=== PATIENT | female | born 1975 ===

== ENCOUNTER 2022-03-11 20:04 | Emergency (ER) | payer OTHER, SELFPAY ==
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
[2022-03-11 20:14] VITALS: BP 169/82; PULSE 97; RESP 16; O2SAT 98; BMI 28.3
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
[2022-03-11] MEDS: Cyclobenzaprine HCl 5 MG TABLET PO (21:45)
[2022-03-11] MEDS: Ketorolac Tromethamine 15 MG/ML VIAL IM (21:46)
== END 2022-03-11 22:31 | disposition home or self-care (01) ==
PROVIDERS: Emergency Provider Emergency Medicine
DX: R07.89 Other chest pain (principal); M25.511 Pain in right shoulder; Z79.899 Other long term (current) drug therapy
CPT/HCPCS: 71046; 73060; 73080; 96372; 99283; 99284; J1885

== ENCOUNTER → 2022-04-29 09:25 | Outpatient (RCR) | payer OTHER, SELFPAY ==
[2020-05-22 08:30] LABS: COVID-19 Test Negative (Negative)
[2020-05-30 09:42] LABS: COVID-19 Test Negative (Negative)
[2020-06-05 15:41] LABS: COVID-19 Test Negative (Negative)
[2020-06-29 13:54] LABS: SARS-COV-2 PCR UMBRL NOT DETECTED
[2020-07-08 09:44] LABS: SARS-COV-2 PCR UMBRL Not Detected
[2020-07-15 10:04] LABS: SARS-COV-2 PCR UMBRL Not Detected
[2020-07-19 12:16] LABS: SARS-COV-2 PCR UMBRL NEGATIVE
[2020-07-24 08:53] LABS: COVID-19 Test Negative (Negative)
[2020-07-26 15:31] LABS: SARS-COV-2 PCR UMBRL NEGATIVE
== END | disposition home or self-care (01) ==
LOC: HO.EMPCOV 05-22 08:07
PROVIDERS: Visit Provider Internal Medicine
DX: Z20.828 Contact with and (suspected) exposure to other viral communicable diseases (principal)
CPT/HCPCS: 36415; 87635; C9803; U0003

== ENCOUNTER 2022-09-25 06:38 | Outpatient (REF) | payer OTHER, SELFPAY ==
[2022-09-25 07:56] LABS: MANUAL DIFF FLAG NO
[2022-09-25 08:18] LABS: Basophils Absolute Auto 0.1 X10*3/uL (0.0-0.2); Basophils Percent Auto 0.8 % (0-2); Eosinophils Absolute Auto 0.5 X10*3/uL (0.0-0.4); Eosinophils Percent Auto 7.1 % (0-4); Hemoglobin 12.9 g/dl (12.0-16.0); Imm Gran Abs Auto 0.05 X10*3/uL (0.00-0.03); Imm Gran Pct Auto 0.7 % (0.0-0.4); Lymphocytes Absolute Auto 2.3 X10*3/uL (1.2-4.9); Lymphocytes Percent Auto 31.9 % (20-40); Mean Corpuscular HGB Conc 32.3 g/dl (31.0-35.0); Mean Corpuscular Hemoglobin 27.2 pg (27.0-33.0); Mean Corpuscular Volume 84.4 fL (80.0-98.0); Monocytes Absolute Auto 0.4 X10*3/uL (0.1-1.2); Monocytes Percent Auto 5.9 % (2-11); Neutrophils Absolute Auto 3.8 x10*3/uL (2.0-8.3); Neutrophils Percent Auto 53.6 % (45-73); Platelet Count 252 X10*3/uL (160-400); Red Blood Count 4.74 X10*6/uL (4.20-5.50); Red Cell Distribution Width 13.7 % (11.0-16.0); White Blood Count 7.1 X10*3/uL (4.8-10.8)
[2022-09-25 09:06] LABS: Alanine Aminotransferase 16 U/L (0-31); Alkaline Phosphatase 68 U/L (39-117); Anion Gap 15 (12-20); Aspartate Amino Transferase 12 U/L (5-31); Bilirubin Total 0.4 mg/dL (0.0-1.0); Blood Urea Nitrogen 15 mg/dL (9-16); Calcium 9.1 mg/dL (8.4-10.2); Carbon Dioxide 21 mmol/L (22-29); Chloride 109 mmol/L (96-108); Cholesterol 262 mg/dL; Estimated Glomerular Filt Rate > 60; Glucose Random 191 mg/dL (60-115); HDL Cholesterol 42 mg/dL; LDL Cholesterol Calculated 195 mg/dl; Potassium 4.5 mmol/L (3.3-5.1); Sodium 140 mmol/L (135-145); Total Protein 6.4 g/dL (6.5-8.0); Triglycerides 127 mg/dL
[2022-09-25 09:29] LABS: Free T4 (Free Thyroxine) 0.91 ng/dL (0.71-1.85); T4 Thyroxine 7.9 ug/dL (4.5-12.0); Thyroid Stimulating Hormone 1.44 uIU/mL (0.32-4.0); Vitamin D 25-OH Total 11.3 ng/mL (>30)
[2022-09-27 21:03] LABS: T3 Uptake 29 % (22-35)
[2022-09-27 23:54] LABS: TS Negative Control Passed; TS Panel A 0; TS Panel B 0; TS Positive Control Passed; TSpotTB Negative (Negative)
== END 2022-09-25 06:39 | disposition home or self-care (01) ==
LOC: HO.LAB 06:38
PROVIDERS: PCP Internal Medicine; Visit Provider Internal Medicine
DX: Z00.00 Encounter for general adult medical examination without abnormal findings (principal); E78.41 Elevated Lipoprotein(a)
CPT/HCPCS: 36415; 80053; 80061; 82306; 84436; 84439; 84443; 84479; 85025; 86481

== ENCOUNTER 2024-03-27 10:09 | Emergency (ER) | payer OTHER, SELFPAY ==
--- NOTE | ~2024-03-27 | US_ITS ---
EXAMINATION: ULTRASOUND OF THE PELVIS CLINICAL INFORMATION: Left lower pelvic pain. COMPARISON: None TECHNIQUE: Transabdominal and transvaginal pelvic ultrasound. A transvaginal study was performed in addition to the transabdominal study which did not yield an adequate examination of the uterus and ovaries due to superimposed distended gas-filled loops of bowel. FINDINGS: Uterus: The uterus is anteverted and normal in size and appearance, measuring 8.7 x 3.7 x 3.8 cm. An intrauterine device is in place, obscuring assessment of the endometrial stripe and the posterior uterine parenchyma.. There are 3 small uterine fibroid seen, including the following: -Anterior midline of the uterine body, small intramural fibroid, measuring 0.8 x 0.7 x 0.8 cm. -Posterior uterine body intramural fibroid, measuring 0.5 x 0.5 x 0.5 cm. -Right-sided uterine fundal intramural fibroid is subserosal extension, measuring 2.3 x 2.5 x 3 cm. The cervical length is normal measuring 3.6 cm. Small nabothian cysts are seen in the cervix. Ovaries: The ovaries bilaterally are visualized and appear normal, with the right ovary measuring 2.1 x 2 x 1.9 cm (4.2 mL volume) and the left ovary measuring 1 x 2.2 x 1.1 cm (1.3 mL volume). Please note, the left ovary is only seen on the transabdominal imaging and not visualized on the transvaginal exam due to multiple shadowing loops of gas-filled bowel. With color Doppler imaging, normal flow to the right ovary is seen. Flow to the left ovary is not documented. Spectral Doppler assessment of both ovaries was not performed. Other: No adnexal mass or free fluid collection seen. US/US pelvic and transvaginal IMPRESSION: 1. Multiple small uterine fibroids are seen. 2. Intrauterine device is in place, limiting assessment of the endometrial stripe and posterior uterine parenchyma. 3. Ovaries bilaterally normal in appearance. Normal vascular flow to the right ovary. Please note, however, the left ovary was only visualized on the transabdominal portion of the exam and was not specifically evaluated with color Doppler imaging. Therefore, vascular flow to the left ovary was not evaluated on this exam. Electronically signed by: Rosi Okeefe MD 03/27/2024 02:19 PM EDT RP
[2024-03-27 10:14] VITALS: BP 150/83; PULSE 71; RESP 20; TEMP 37; O2SAT 100; BMI 24.9
[2024-03-27 10:56] LABS: MANUAL DIFF FLAG NO
[2024-03-27 10:58] LABS: Basophils Absolute Auto 0.1 X10*3/uL (0.0-0.2); Basophils Percent Auto 0.8 % (0-2); Eosinophils Absolute Auto 0.4 X10*3/uL (0.0-0.4); Eosinophils Percent Auto 5.3 % (0-4); Hematocrit 40.5 % (37.0-47.0); Hemoglobin 13.8 g/dl (12.0-16.0); Imm Gran Abs Auto 0.02 X10*3/uL (0.00-0.03); Imm Gran Pct Auto 0.3 % (0.0-0.4); Lymphocytes Absolute Auto 2.6 X10*3/uL (1.2-4.9); Lymphocytes Percent Auto 34.7 % (20-40); Mean Corpuscular HGB Conc 34.1 g/dl (31.0-35.0); Mean Corpuscular Hemoglobin 28.6 pg (27.0-33.0); Mean Platelet Volume 9.5 fL (9.4-12.3); Monocytes Absolute Auto 0.5 X10*3/uL (0.1-1.2); Monocytes Percent Auto 6.5 % (2-11); Neutrophils Percent Auto 52.4 % (45-73); Platelet Count 242 X10*3/uL (160-400); Red Blood Count 4.82 X10*6/uL (4.20-5.50); Red Cell Distribution Width 14.2 % (11.0-16.0); White Blood Count 7.6 X10*3/uL (4.8-10.8)
[2024-03-27 11:00] LABS: Appearance Urine Clear; Color Urine Yellow; Glucose Urine UA Negative (Negative); Leukocyte Esterase Urine Negative (Negative); Nitrite Urine Negative (Negative); PH 5.5 (5.0-9.0); UMIC TRIGGER UACC YES; Urine Blood Small (1+) (Negative); Urine Ketones Negative (Negative); Urine Protein Negative (Neg-Trace)
[2024-03-27 11:07] LABS: Bacteria Urine None Seen (None Seen); Hyaline Casts Urine 0-2 /LPF (0-2); RBC Urine 0-2 /HPF (0-2); Squamous Epithelial Cell Urine 0-2 /HPF (0-2); WBC Urine 0-5 /HPF (0-5)
[2024-03-27 11:12] LABS: Alanine Aminotransferase 14 U/L (0-31); Albumin Level 4.1 g/dL (3.5-5.0); Alkaline Phosphatase 56 U/L (39-117); Anion Gap 10 (12-20); Aspartate Amino Transferase 13 U/L (5-31); Bilirubin Total 0.6 mg/dL (0.0-1.0); Blood Urea Nitrogen 13 mg/dL (9-16); Calcium 9.9 mg/dL (8.4-10.2); Carbon Dioxide 26 mmol/L (22-29); Chloride 108 mmol/L (96-108); Creatinine Clr Calc Pharmacy 80.1; Estimated Glomerular Filt Rate > 60; Glucose Random 133 mg/dL (60-115); Lipase 21 U/L (8-78); Sodium 140 mmol/L (135-145); Total Protein 6.7 g/dL (6.5-8.0)
--- NOTE | 2024-03-27 11:49 | ED.ABDPAIN ---
HPI - Abdominal Pain General Chief Complaint: Abdominal Pain Stated Complaint: Abdominal Pain Time Seen by Provider: 03/27/24 11:23 Source: patient and RN notes reviewed Mode of arrival: ambulatory Limitations: no limitations History of Present Illness ED Provider: Shalini Soares PA-C HPI narrative: This is a [id number] who presents to the ER with complaints of left lower abdominal pain since 1:30AM this morning. Patient states that while she was sleeping she was awoken with left lower quadrant pain. She states that the pain is intermittent, she states that she took Excedrin at 4:45 a.m. this morning, which alleviated her symptoms. She states that the pain alleviates with movement, worsens at rest. She has a history of ovarian cysts. She reports her last menstrual period started on March 21, states that last month she missed her menses, she states that she has a history of irregular menses and believes that she is approaching menopause. She is sexually active with her partner. No abnormal vaginal discharge or bleeding. Denies any fevers, chills, chest pain, shortness breath, nausea, vomiting, diarrhea, blood in stool, UTI symptoms or sexual partners. MD elicited complaint: abdominal pain Pertinent past history: none Onset (ago): hour(s) Pain Consistency: intermittent Location: LLQ Quality: other (squeezing) Radiation: none Migration to: no migration Exacerbating factors: rest Relieving factors: movement Associated symptoms: denies other symptoms Treatments prior to arrival: NSAIDs Related Data Date of Last Menstrual Period: 03/21/24 Previous Rx's ?Medication ?Instructions ?Recorded cyclobenzaprine 5 mg tablet 5 mg PO TID PRN muscle spasm 7 03/11/22 days #21 tabs Allergies Allergy/AdvReac Type Severity Reaction Status Date / Time acetaminophen [From Percocet] Allergy Itching Verified 03/27/24 10:16 oxycodone [From Percocet] Allergy Itching Verified 03/27/24 10:16 Review of Systems Review of Systems Yes all other systems are reviewed and are negative Constitutional: Denies chills and Denies fever(s) Cardiovascular: Denies chest pain and Denies dyspnea Respiratory: Denies dyspnea Gastrointestinal: Reports abdominal pain, Denies melena, Denies hematochezia, Denies constipation, Reports dyspepsia, Denies diarrhea, Denies nausea and Denies vomiting Genitourinary: Reports abnormal menses, Denies hematuria, Denies difficulty voiding, Denies dysuria, Reports pelvic pain, Denies flank pain, Denies urinary urgency, Denies vaginal discharge, Denies vaginal odor and Denies vaginal pruritus PMF Past Medical History Date of Last Menstrual Period: 03/21/24 Social History Social History Advance Directives: No Advance Directives Information Provided: No Do you have a plan to hurt others: No Plan Physical Exam ED Vital Signs: Vital Signs - 24 hr 03/27/24 10:14 03/27/24 12:00 03/27/24 14:00 Temperature 98.6 F 98 F 97.3 F Pulse Rate 71 54 56 Respiratory Rate 20 18 18 Blood Pressure 150/83 H 110/76 118/74 Pulse Oximetry 100 98 98 Oxygen Delivery Method Room Air Room Air Room Air 03/27/24 15:26 Temperature 97.3 F Pulse Rate 56 Respiratory Rate 18 Blood Pressure 118/74 Pulse Oximetry 98 Oxygen Delivery Method Room Air BMI result Body Mass Index 24.9 Const General: cooperative, comfortable and no acute distress Limitations: no limitations Chest Chest palpation & inspection: normal inspection of the chest Resp Effort & Inspection: normal respiratory effort and able to speak in complete sentences Auscultation: clear to auscultation bilaterally, no crackles, no rales, no rhonchi and no wheezes Cardio Rate: regular rate Rhythm: regular rhythm Heart sounds: S1 normal heart sound present and S2 normal heart sound present GI Other: tender to palpation with guarding in LLQ Inspection: Yes normal to inspection Palpation (GI): Soft to palpation and Guarding due to palpation present (GI) in the LLQ Auscultation: normal bowel sounds Course Reevaluation(s) Reevaluation #1: Ultrasound revealing small uterine fibroids, IUD placement, as normal ovarian appearance. Vascular flow to the left ovary was not evaluated however appears to be normal. Patient re-evaluated, she has not had any pain in her left lower abdomen for several hours. She is feeling much better, I discussed findings with patient, and she will follow-up with her PCP and OBGYN. Ovarian torsion is unlikely given her pain has since resolved. I gave her strict return precautions. She understands and agrees with plan. Patient stable for discharge. Time: 14:43 Medical Decision Making Medical Decision Making [facility] Narrative: this is a 48-year-old female who presents emergency department with complaints of left lower quadrant pain which started at 1:30 a.m. this morning. On arrival, she is well-appearing, under no acute distress. Vital signs revealing slight hypertension at 150/83, abdomen is soft, with mild tenderness palpation in the left lower quadrant, no rebound or guarding. Differential diagnoses include UTI, diverticulitis - unlikely, constipation, ovarian cyst, ovarian torsion. Plan: Labs, ultrasound, UA Differential Diagnosis Differential Diagnoses: The differential diagnosis associated with the presentation includes Admission/Observation Consideration of admission/observation: Escalation of care including admission/observation considered Lab Data [facility] Lab Attestation statement: I reviewed the patient's lab results. No leukocytosis, stable H&H, no electrolyte derangement. Urine with small blood, negative . 03/27/24 10:50 03/27/24 10:50 Labs: Lab Results 03/27/24 03/27/24 Range/Units 10:48 10:50 WBC 7.6 (4.8-10.8) X10*3/uL RBC 4.82 (4.20-5.50) X10*6/uL Hgb 13.8 (12.0-16.0) g/dl Hct 40.5 (37.0-47.0) % MCV 84.0 (80.0-98.0) fL MCH 28.6 (27.0-33.0) pg MCHC 34.1 (31.0-35.0) g/dl RDW 14.2 (11.0-16.0) % Plt Count 242 (160-400) X10*3/uL MPV 9.5 (9.4-12.3) fL Immature Gran % (Auto) 0.3 (0.0-0.4) % Neut % (Auto) 52.4 (45-73) % Lymph % (Auto) 34.7 (20-40) % Mccreary % (Auto) 6.5 (2-11) % Eos % (Auto) 5.3 H (0-4) % Baso % (Auto) 0.8 (0-2) % Lymph # (Auto) 2.6 (1.2-4.9) X10*3/uL M[place]reary # (Auto) 0.5 (0.1-1.2) X10*3/uL Eos # (Auto) 0.4 (0.0-0.4) X10*3/uL Baso # (Auto) 0.1 (0.0-0.2) X10*3/uL Abs Immat Gran (auto) 0.02 (0.00-0.03) X10*3/uL Absolute Neuts (auto) 4.0 (2.0-8.3) x10*3/uL Absolute Nucleated RBC 0.000 (0.0-0.012) X10*3/uL Nucleated RBC % (auto) 0.0 (0.0-0.2) /100WBC Sodium 140 (135-145) mmol/L Potassium 4.0 (3.3-5.1) mmol/L Chloride 108 (96-108) mmol/L Carbon Dioxide 26 (22-29) mmol/L Anion Gap 10 L (12-20) BUN 13 (9-16) mg/dL Creatinine 0.78 (0.5-1.4) mg/dL Estim Creat Clear Calc 80.1 Estimated GFR > 60 Random Glucose 133 H (60-115) mg/dL Calcium 9.9 D (8.4-10.2) mg/dL Total Bilirubin 0.6 (0.0-1.0) mg/dL AST 13 (5-31) U/L ALT 14 (0-31) U/L Alkaline Phosphatase 56 (39-117) U/L Total Protein 6.7 (6.5-8.0) g/dL Albumin 4.1 (3.5-5.0) g/dL Lipase 21 (8-78) U/L Urine Color Yellow Urine Appearance Clear Urine pH 5.5 (5.0-9.0) Ur Specific [place] 1.010 (1.005-1.025) Urine Protein Negative (Neg-Trace) mg/dL Urine Glucose (UA) Negative (Negative) mg/dL Urine Ketones Negative (Negative) mg/dL Urine Blood Small (1+) H (Negative) Urine Nitrite Negative (Negative) Ur Leukocyte Esterase Negative (Negative) Urine RBC 0-2 (0-2) /HPF Urine WBC 0-5 (0-5) /HPF Ur Squamous Epith Cells 0-2 (0-2) /HPF Urine Bacteria None Seen (None Seen) Hyaline Casts 0-2 (0-2) /LPF Urine Test NEGATIVE (NEGATIVE) Radiology Impression Discussion of test interpretation with radiology: I have reviewed the radiologist's reading. Radiologist Impression: US/US pelvic and transvaginal IMPRESSION: 1. Multiple small uterine fibroids are seen. 2. Intrauterine device is in place, limiting assessment of the endometrial stripe and posterior uterine parenchyma. 3. Ovaries bilaterally normal in appearance. Normal vascular flow to the right ovary. Please note, however, the left ovary was only visualized on the transabdominal portion of the exam and was not specifically evaluated with color Doppler imaging. Therefore, vascular flow to the left ovary was not evaluated on this exam. Electronically signed by: Rosi Okeefe MD 03/27/2024 02:19 PM EDT RP Dictated By: Rosi Okeefe MD External Record Review External record reviewed: Inpatient record, Office record, Outpatient record, Prior outpatient labs, Prior outpatient radiology, Primary care record and Outside ED record Discharge Plan Discharge Clinical Impression: Abdominal pain Patient Disposition: Home, Self-Care Instructions: Acute Abdominal Pain (ED) Additional Instructions: You were seen in the emergency department due to abdominal pain. It is unclear what is causing you to have the symptoms however your workup today was reassuring. Please get plenty of rest and drink plenty of fluids, and take ibuprofen and or Tylenol as needed for pain. If any new or worsening symptoms occur including but not limited to return of your symptoms please return for re-evaluation. Follow-up with your primary care physician and your OBGYN. Prescriptions: No Action cyclobenzaprine 5 mg tablet 5 mg PO TID PRN (Reason: muscle spasm) 7 Days Qty: 21 0RF Stand Alone Forms: Work/School Release Interventions: ED Discharge Assessment Last Done: 03/27/24 15:26 Discharge Date/Time: 03/27/24 15:26 Print Language: Colombian
[2024-03-27 12:00] VITALS: BP 110/76; PULSE 54; RESP 18; TEMP 36.6; O2SAT 98
[2024-03-27 12:21] LABS: UPreg QC Valid YES; Urine Pregnancy NEGATIVE (NEGATIVE)
[2024-03-27 14:00] VITALS: BP 118/74; PULSE 56; RESP 18; TEMP 36.3; O2SAT 98
[2024-03-27 15:26] VITALS: BP 118/74; PULSE 56; RESP 18; TEMP 36.3; O2SAT 98
== END 2024-03-27 15:26 | disposition home or self-care (01) ==
PROVIDERS: Physician Assistant Medical; Emergency Provider Emergency Medicine; PCP Internal Medicine
DX: R10.32 Left lower quadrant pain (principal); D25.9 Leiomyoma of uterus, unspecified; Z79.899 Other long term (current) drug therapy; R10.2 Pelvic and perineal pain
CPT/HCPCS: 36415; 76830; 76856; 80053; 81001; 81025; 83690; 85025; 99284

== ENCOUNTER 2025-06-25 15:17 | Outpatient (AMB) | payer OTHER, SELFPAY ==
--- NOTE | 2025-06-25 15:21 | A.OFFVIS_ITS ---
Intake Visit Reasons: birthmark with a skin tag Intake Note: Office procedure: Excision birthmark with a skin tag [employer] Required: No Accompanied by: Self / Same As Patient Allergies acetaminophen (From Percocet) Allergy (Verified 06/25/25 15:21) Itching oxycodone (From Percocet) Allergy (Verified 06/25/25 15:21) Itching Medication List - Last Reconciled 06/25/25 by Wesley Jones MD cyclobenzaprine 5 mg PO TID PRN 7 days HPI HPI birthmark with a skin tag: Details: [age] year old female here for a skin lesion in the right cheek. She says that she has had this since . This however has seemed to have increased in size and has been bothering her. She wants this excised. [facility] Medical History (Updated 06/25/25 @ 15:50 by Wesley Jones MD) Skin lesion of face Surgical History No pertinent past surgical history Family History Other Family history unknown Social History Alcohol intake: unknown Patient Tobacco Use Status: Tobacco use Unknown Review of Systems Const Denies chills and Denies fever(s) Card Denies chest pain, Denies dyspnea and Denies dyspnea on exertion Resp Denies cough, Denies dyspnea and Denies dyspnea on exertion GI Denies hematochezia and Denies change in bowel habits Denies hematuria Musc Denies back pain and Denies limited range of motion Neuro Denies focal weakness and Denies convulsions Psych Denies depression and Denies mood swings Physical Exam Const General: comfortable and no acute distress HEENT Other: On the right cheek is note of an elevated, pigmented soft skin lesion about 5 mm long, with a narrow base Office Procedures Excision Details: She was in reclining position. The area of the skin lesion in the right cheek was prepped and draped. Lidocaine 1% was used for local anesthesia. I excised this skin lesion with a blade 15.. This included part of the epidermal layer. In view of the narrow base, I did not apply sutures but cauterized the excision site with an i-STAT. I applied dry dressings. She tolerated procedure well. There were no immediate complications. [id number] face/ear/eyelid/nose/lip/mucous membrane 0.6cm-1cm Procedure code (CPT) selection complete Assessment & Plan Assessment & Plan (1) Skin lesion of face: Code(s): L98.9 - Disorder of the skin and subcutaneous tissue, unspecified Category: Medical Plan: This appears to be a papilloma. I therefore excised this in the office under local anesthesia. She was given wound care instructions. She can take Tylenol and ibuprofen for pain I will update her in the path report. Coding Level of Care Code New Pt Level 3 (87991) Diagnoses Skin lesion of face L98.9 CPT Codes Face/Ear/Eyelid/Nose/Lip/Mucous Membrane - CPT: 10726-Vqvimuen face/ear/eyelid/nose/lip/mucous membrane 0.6cm-1cm ([id number])
--- OUTSIDE RECORDS SUMMARY | 2025-06-25 21:47 | XMS_ITS | Clinical Summary ---
Author Organization [facility] [address] [place] [address] [place] [phone] Phone Care Team Providers Care [employer] Installer Name Role Phone Christiano Saeed MD Primary Care Provider Allergies Active Allergy Reactions Criticality Noted Date Comments Oxycodone-Acetaminophen Hives Low 05/10/2025 Medications ascorbic acid/vitamin E/biotin (HAIR, SKIN, NAILS WITH BIOTIN ORAL) BIOTIN W/ VITAMINS C & E 1250-7.5-7.5 MCG-MG-UNT CHEW TAB: Take by mouth daily. - Oral Active blood-glucose meter kit BLOOD GLUCOSE MONITORING SUPPL (ONE TOUCH ULTRA 2) W/DEVICE KIT: 1 Device by Does not apply route See Admin Instructions. Used to check sugars once daily. - Does not apply 12/03/19 24 Active multivit-min/ir on/folic acid/K (ADULTS MULTIVITAMIN ORAL) Take by mouth daily. Active levonorgestreL (Mirena) 21 mcg/24 hr (8 yrs) 52 mg IUD by Intrauterine route. Active lancets (OneTouch Delica Plus Lancet) 30 gauge Use as directed to check fsbs once daily 100 each 1 07/17/19 25 Active glucose blood test strip Use as instructed 100 each 11 09/05/19 25 Active Microlet Lancet lancets USE TO TEST BLOOD SUGARS 100 each 1 04/10/20 25 Active rosuvastatin (CRESTOR) 5 mg tablet Take 1 tablet (5 mg total) by mouth 1 (one) time each day. 90 each 3 05/10/20 25 Active metFORMIN XR (GLUCOPHAGE-XR) 500 mg 24 hr tablet TAKE 1 TABLET BY MOUTH 2 (TWO) TIMES A DAY WITH MEALS *DO NOT CRUSH CHEW OR SPLIT* 180 each 3 06/20/20 25 Active metFORMIN XR (GLUCOPHAGE-XR) 500 mg 24 hr tablet Take 1 tablet (500 mg total) by mouth 2 (two) times a day with meals. Do not crush, chew, or split. 180 each 3 09/05/19 25 2024 Discontinued Active Problems Problem Noted Date Diagnosed Date GERD (gastroesophageal reflux disease) Type 2 diabetes mellitus wit hout complication, without long-term current use of insulin 11/26/2023 Assessment & Plan (09/05/2024 5:10 PM EST): Patient had significant improvement in her diabetes control. She is only taking metformin 500 mg twice daily. She is very meticulous with her diet and exercise routine. She continues to lose weight. We talked about the recommendation for a statin for patients over 40 with diabetes. We also talked about her elevated cholesterol levels. Patient would like to hold off on additional medication at this time. Will reassess her lipid panel. Follow-up with care team as scheduled in 3 months. Sooner if need be. Orders: Lipid panel with reflex to direct LDL; Future Hemoglobin A1c; Future Comprehensive metabolic panel; Future Assessment & Plan (06/07/2024 4:04 PM EST): Her diabetes seems to be showing some significant improvement based on her fasting blood sugars. She is noticing that she needs to be very careful with her intake of even small amounts of carbohydrates, as it tends to cause sugar elevations for the next 2 to 3 days. She is down another 7 pounds through intentional efforts. She feels well has no complaints or concerns. She will continue on her current dose of metformin. I will recheck her hemoglobin A1c. I will let the patient know how this looks. Backache 09/13/2006 Overview (04/25/2024): IMO update Cervicalgia 09/13/2006 Pain in joint, shoulder region 09/13/2006 Encounters Date Type Department Care Team Description 05/10/2025 3:30 PM EDT Office Visit [address] [phone] Christiano Saeed MD Type 2 diabetes mellitus without complication, without long-term current use of insulin (CMS/HCC V24, CMS/HCC V28) (Primary Dx); Hypercholesterolemia 03/30/2025 3:38 PM EDT - 03/30/2025 11:59 PM EDT Hospital Encounter Radiology Department [address] [phone] Encounter for screening mammogram for breast cancer Discharge Disposition: Home or Self Care from Last 3 Months Immunizations Immunization Administration Dates Next Due COVID-19 (Moderna/Spikevax) 12yo and older 06/03 Hepatitis B Pediatric (Enger ix B; Recombivax HB) to less than 20 yo 11/15/2018,04/11/2018 Influenza trivalent, 0.5mL, preservative free (Fluarix; FluLaval; Fluzone) ages 6mo and older (Afluria) 3 years and older 05/22/2010 MMR, measles mumps and rubel la Live (Priorix; M-M-R II) 12mo and older 06/14/2019,04/11/2018,09/25/2015 PPD Test 09/16/2015 Tdap Tetanus diptheria acell ular pertussis (Boostrix; Adacel) 7yo and older 09/16/2015 Surgical History Surgery Date Site/Laterality Comments ANKLE SURGERY Right PROCEDURE: HISTORICAL ANKLE SURGERY; COMMENT: 1996 Medical History Medical History Date Comments GERD (gastroesophageal reflux disease) DX:GERD (gastroesophageal reflux disease) Family History Medical History Relation Name Comments Hypertension Father Parkinsonism Father Stomach cancer Maternal Grandfather Lung cancer Maternal Grandmother Diabetes Mother Hypertension Mother Uterine cancer Mother's side 1 aunt lewy body dementia Mother's side 1 Prostate cancer Mother's side 2 uncle Breast cancer Neg Hx Colon cancer Neg Hx Ovarian cancer Neg Hx Relation Name Status Comments Brother Alive 2 Daughter Alive Father Alive Maternal Grandfather Maternal Grandmother Mother Alive Mother's side 1 Mother's side 2 Paternal Grandfather Paternal Grandmother Son Alive Social History Tobacco Use Types Packs/Day Years Used Date Smoking Tobacco: Former Cigarettes Smokeless Tobacco: Former Quit: 03/12/2013 Alcohol Use Standard Drinks/Week Comments Yes 0 (1 standard drink = 0.6 oz pur e alcohol) occ Housing Instability Answer Date Recorde d Are you worried that in the next 2 months you may not have stable housing? No 11/28/2024 Food Access & Nutrition Answer Date Rec orded Do you have access to a vari ety of food including fruits and vegetables? Yes 11/28/2024 Access to Healthcare Answer Date Record ed Within the last 3 months, ho w many times did you visit the emergency department for your medical care? 0 11/28/2024 Health Literacy Answer Date Recorded How often do you need to hav e someone help you when you read instructions, pamphlets, or other written material from your doctor or pharmacy? Never 11/28/2024 Caregiver: How often do you need to have someone help you when you read instructions, pamphlets, or other written material from your doctor or pharmacy? Not on file 11/28/2024 Financial Risk Answer Date Recorded How hard is it for you to pa y for the very basics like food, housing, medical care, and air conditioning / heating? Not very hard 11/28/2024 Transportation Answer Date Recorded Has the lack of transportati on kept you from meetings, work, or from getting things needed for daily living? No Has the lack of transportati on kept you from medical appointments or from getting medications? No 11/28/2024 Social Isolation Answer Date Recorded How often do you feel lonely or isolated from th ose around you? Never 11/28/2024 Food Risk Answer Date Recorded Within the past 12 months we worried whether our food would run out before we got money to buy more. Never true 11/28/2024 Within the past 12 months th e food we bought just didn't last and we didn't have money to get more. Never true 11/28/2024 Dependent Care Answer Date Recorded Do you need help finding or paying for care for your loved ones. For example, childcare worker or elderly care for an older adult? No 11/28/2024 Education Answer Date Recorded Do you think completing more education or training, like finishing a GED, going to college, or learning a trade, would be helpful for you? N/A 11/28/2024 Employment and Income Answer Date Recor ded During the last four weeks, have you been actively looking for work? Yes 11/28/2024 Living Situation Answer Date Recorded What is your living situation? Unrecognized valu e 11/28/2024 Comments No Sex and Gender Information Value Date Recorded Sex Assigned at Not on file Legal Sex Female 5:42 AM EST Gender Identity Not on file Sexual Orientation Not on file Obstetrics History Para Term AB IAB SAB Ectopic Multiple Livin g Live Births 2 2 2 2 Date Outcome GA Total Labor Labor/2nd/3rd Weight Sex Type Anes PTL Yumi A1 A5 Name Clin Term Term Last Filed Vital Signs Vital Sign Reading Time Taken Comments Blood Pressure 112/71 05/10/2025 3:28 PM EDT Pulse 86 05/10/2025 3:28 PM EDT Temperature 36.9 C (98.5 F) 05/10/2025 3:28 PM EDT Respiratory Rate 15 05/10/2025 3:28 PM EDT Oxygen Saturation 98% 05/10/2025 3:28 PM EDT Inhaled Oxygen Concentration - - Weight 56.5 kg (124 lb 9.6 oz) 05/10/2025 3:28 P M EDT Height 154.9 cm (5' 1 ) 05/10/2025 3:28 PM EDT Body Mass Index 23.54 05/10/2025 3:28 PM EDT Plan of Treatment Upcoming Encounters Date Type Department Care Team (Late st Contact Info) Description 09/18/2025 3:30 PM EDT Office Visit Adult Medicine [facility] [address] [place] [address] Christiano Saeed MD [address] [place], [place] Health Maintenance Due Date Last Done Comments Influenza Vaccine (#1) 2025 05/22/2010 Diabetes: Annual Retina Eye Exam 04/17/2025 04/17/2024 Diabetes: Annual GFR (Glomerular Filtration Rate) 09/05/2025 09/05/2024, 06/07/2024, 11/25/2023, Additional history exists DTaP,Tdap,and Td Vaccines (2 - Td or Tdap) 09/15/2025 09/16/2015 Diabetes: Blood Sugar Control Test (HGBA1C) 09/20/2025 03/23/2025, 01/04/2025, 09/05/2024, Additional history exists Social Influencers of Health Screening 11/28/2025 11/28/2024 Diabetes: Annual Urine Albumin-Creatinine Ratio (uACR) 01/04/2026 01/04/2025, 03/07/2024 Diabetes: Annual Foot Exam 05/10/2026 05/10/2025, Breast Cancer Screening 03/30/2027 03/30/20, 03/28/2024, 03/28/2024, Additional history exists Cervical Cancer Screening: HPV 11/14/2028 11/15/2023 Cholesterol Screening (Lipid Panel) 09/05/2029 09/05/2024, 06/07/2024, 11/25/2023, Additional history exists Colorectal Cancer Screening: Colonoscopy 01/11/2034 01/12/2024 RSV Immunization Adult Patients (1 - 1-dose 75+ series) 11/11/2051 HIV Screening Completed 10/08/2006 Hepatitis B Vaccines Discontinued 11/15/2018, 04/11/20 18 MMR Vaccines Aged Out 06/14/2019, 1007/2017, 09/25/2015 No longer eligible based on patient's age to complete this topic COVID-19 Vaccine Discontinued 06/03/2022, 09/2020, 05/23/2021 Depression Screening Completed 05/10/2025 HIB Vaccines Aged Out No longer eligi ble based on patient's age to complete this topic HPV Vaccines Aged Out No longer eligi ble based on patient's age to complete this topic Hepatitis A Vaccines Aged Out No long er eligible based on patient's age to complete this topic Hepatitis C Screening Discontinued IPV Vaccines Aged Out No longer eligi ble based on patient's age to complete this topic Meningococcal ACWY Vaccine Aged Out N o longer eligible based on patient's age to complete this topic Meningococcal B Vaccine Aged Out No l onger eligible based on patient's age to complete this topic Pneumococcal Vaccine: Pediatrics (0 to 5 Years) and At-Risk Patients (6 to 49 Years) Discontinued RSV Immunization Patients Under 20 months Aged Out No longer eligible based on patient's age to complete this topic Varicella Vaccines Aged Out No longer eligible based on patient's age to complete this topic Procedures Procedure Name Priority Date/Time Associated Diagnosis Comments MG MAMMO DIGITAL SCREENING W JOSIAH BILAT Routine 03/30/2025 3:55 PM EDT Encounter for screening mammogram for breast cancer HEMOGLOBIN A1C Routine 03/23/2025 7:50 AM EDT Type 2 diabetes mellitus without complication, without long-term current use of insulin ([facility] V24, [facility] V28) MICROALBUMIN CREATININE URINE RATIO Routine 01/04/2025 4:16 PM EDT Type 2 diabetes mellitus without complication, without long-term current use of insulin ([facility] V24, [facility] V28) COMPREHENSIVE METABOLIC PANEL Routine 09/05/2024 4:59 PM EST Newly diagnosed diabetes ([facility] V24, [facility] V28) LIPID PANEL WITH REFLEX TO DIRECT LDL Routine 09/05/2024 4:59 PM EST Newly diagnosed diabetes ([facility] V24, [facility] V28) DIABETES FOOT EXAM Routine 03/07/2024 COLONOSCOPY Routine 01/12/2024 HPV Routine 11/15/2023 HIV SCREENING Routine 10/08/2006 from Last 3 Months or Most Recently Relevant to Health Maintenance Results * MG Mammo Digital Screening w Josiah bilat (03/30/2025 3:55 PM EDT) Anatomical Region Laterality Modality Breast Bilateral Mammography 04/02/2025 12:4 9 PM EDT Impressions 04/02/2025 12:51 PM EDT No mammographic evidence for malignancy. BI-RADS CATEGORY: 1 - NEGATIVE RECOMMENDATION: Screening bilateral mammogram is recommended in 1 year. Mammo Location: [facility], [address] [place] [address], [id number], . -------- FINAL REPORT -------- Dictated By: Emerita Hatch Dictated Date: 04/02/2025 12:49 ET Assigned Physician: Emerita Hatch Reviewed and Electronically Signed By: Emerita Hatch Signed Date: 04/02/2025 12:51 ET Workstation ID: [id number] Transcribed By: Self Edit Transcribed Date: 04/02/2025 12:49 ET Narrative 04/02/2025 12:51 PM EDT Bilateral screening mammogram. CLINICAL: 49 years old, Female, routine annual exam. COMPARISON: Prior studies, latest from 03/28/2024 TECHNIQUE: Bilateral MLO and CC views were obtained digitally with 2-D C views and 3-D mammogram (digital breast tomosynthesis). Computer-aided detection was utilized in evaluation of this exam (CAD). FINDINGS: There is no evidence of suspicious mass or architectural distortion. No worrisome calcifications are evident. There has been no significant change from prior exam(s). BREAST DENSITY: B - There are scattered areas of fibroglandular density. Procedure Note Emerita Hatch MD - 04/02/2025 Bilateral screening mammogram. CLINICAL: 49 years old, Female, routine annual exam. COMPARISON: Prior studies, latest from 03/28/2024 TECHNIQUE: Bilateral MLO and CC views were obtained digitally with 2-D Cviews and 3-D mammogram (digital breast tomosynthesis). Computer-aideddetection was utilized in evaluation of this exam (CAD). FINDINGS: There is no evidence of suspicious mass or architectural distortion. Noworrisome calcifications are evident. There has been no significantchange from prior exam(s). BREAST DENSITY: B - There are scattered areas of fibroglandular density. IMPRESSION: No mammographic evidence for malignancy. BI-RADS CATEGORY: 1 - NEGATIVE RECOMMENDATION: Screening bilateral mammogram is recommended in 1 year. Mammo Location: [facility], [address] [place] [address], [id number], . -------- FINAL REPORT -------- Dictated By: Emerita Hatch Dictated Date: 04/02/2025 12:49 ET Assigned Physician: Emerita Hatch Reviewed and Electronically Signed By: Emerita Hatch Signed Date: 04/02/2025 12:51 ET Workstation ID: [id number] Transcribed By: Self Edit Transcribed Date: 04/02/2025 12:49 ET us Ida Newell MD IMG BI PROCEDURES Final Result * Hemoglobin A1c (03/23/2025 7:50 AM EDT) Hemoglobin A1C 6.1 <6.5 % LAB CHEMISTRY METHOD 03/23/2025 5:22 PM EDT [facility] Mean Bld Glu Estim. 128 mg/dL LAB CHEMISTRY METHOD 03/23/2025 5:22 PM EDT [facility] Blood Venous blood specimen / Unknown Venipuncture / Unknown 03/23/2025 7:50 AM EDT 03/23/2025 7:50 AM EDT Tomas [facility]ERNON LAB BLOOD ORDERABLES Final Res ult [facility] [address] [place] [address], * Microalbumin creatinine urine ratio (01/04/2025 4:16 PM EDT) Creatinine, Urine 93.0 mg/dL LAB CHEMISTRY METHOD 01/04/2025 7:39 PM EDT [facility] Microalb, Ur 11.3 0.0 - 29.0 mg/L LAB CHEMISTRY METHOD 01/04/2025 7:39 PM EDT [facility] Microalb/Creat Ratio 12 <30 mg/g creat LAB CHEMISTRY METHOD 01/04/2025 7:39 PM EDT [facility] Urine Urine specimen obtained by clean catch procedure / Unknown Non-blood Collection / Unknown 01/04/2025 4:16 PM EDT 01/04/2025 4:16 PM EDT Tomas [facility]ERNON LAB URINE ORDERABLES Final Res ult [facility] [address] [place] [address], [place] [phone] * (ABNORMAL) Lipid panel with reflex to direct LDL (09/05/2024 4:59 PM EST) Pathologist [facility] Cholesterol 164 0 - 200 mg/dL LAB CHEMISTRY METHOD 09/05/2024 7:36 PM EST [facility] Triglycerides 202(H) 0 - 150 mg/dL LAB CHEMISTRY METHOD 09/05/2024 7:36 PM EST [facility] HDL 44 >=40 mg/dL LAB CHEMISTRY METHOD 09/05/2024 7:36 PM EST [facility] LDL Calculated 80 0 - 100 mg/dL LAB CHEMISTRY METHOD 09/05/2024 7:36 PM EST [facility] VLDL Cholesterol Carter 40.4 mg/dL LAB CHEMISTRY METHOD 09/05/2024 7:36 PM EST [facility] Non HDL Chol. (LDL+VLDL) 120 <145 mg/dL LAB CHEMISTRY METHOD 09/05/2024 7:36 PM EST [facility] Chol/HDL Ratio 3.7 0.0 - 4.4 LAB CHEMISTRY METHOD 09/05/2024 7:36 PM EST [facility] Blood Venous blood specimen / Unknown Venipuncture / Unknown 09/05/2024 4:59 PM EST 09/05/2024 4:59 PM EST Margarito [facility] LAB BLOOD ORDERABLES Fin al Result Performing Organization Address City/[facility]/ZIP Co de Phone Number [facility] [address] [place] [address], [place] [phone] * (ABNORMAL) Comprehensive metabolic panel (09/05/2024 4:59 PM EST) Sodium 144 133 - 145 mmol/L LAB CHEMISTRY METHOD 09/05/2024 7:43 PM [facility] Potassium 4.1 3.5 - 5.5 mmol/L LAB CHEMISTRY METHOD 09/05/2024 7:43 PM [facility] Chloride 111(H) 96 - 110 mmol/L LAB CHEMISTRY METHOD 09/05/2024 7:43 PM [facility] CO2 27 21 - 32 mmol/L LAB CHEMISTRY METHOD 09/05/2024 7:43 PM [facility] Anion Gap 6 3 - 11 LAB CHEMISTRY METHOD 09/05/2024 7:43 PM [facility] Glucose 128(H) 70 - 100 mg/dL LAB CHEMISTRY METHOD 09/05/2024 7:43 PM [facility] BUN 14 5 - 25 mg/dL LAB CHEMISTRY METHOD 09/05/2024 7:43 PM [facility] Creatinine 0.74 0.50 - 1.10 mg/dL LAB CHEMISTRY METHOD 09/05/2024 7:43 PM [facility] eGFR 101 >=60 mL/min/1. 73m2 LAB CHEMISTRY METHOD 09/05/2024 7:43 PM [facility] Comment:Calculation based on the Chronic Kidney Disease Epidemiology Collaboration (CKD-EPI) equation refit without adjustment for race. BUN/Creatinine Ratio 18.9 LAB CHEMISTRY METHOD 09/05/2024 7:43 PM [facility] Calcium 9.1 8.5 - 10.5 mg/dL LAB CHEMISTRY METHOD 09/05/2024 7:43 PM [facility] AST (SGOT) 16 10 - 42 unit/L LAB CHEMISTRY METHOD 09/05/2024 7:43 PM [facility] ALT (SGPT) 41 10 - 60 unit/L LAB CHEMISTRY METHOD 09/05/2024 7:43 PM EST [facility] Alkaline Phosphatase 86 42 - 121 unit/L LAB CHEMISTRY METHOD 09/05/2024 7:43 PM [facility] Total Protein 6.3 6.0 - 8.0 g/dL LAB CHEMISTRY METHOD 09/05/2024 7:43 PM [facility] Albumin 3.4 3.2 - 5.0 g/dL LAB CHEMISTRY METHOD 09/05/2024 7:43 PM [facility] Total Bilirubin 0.2 0.0 - 1.4 mg/dL LAB CHEMISTRY METHOD 09/05/2024 7:43 PM [facility] Blood Venous blood specimen / Unknown Venipuncture / Unknown 09/05/2024 4:59 PM EST 09/05/2024 4:59 PM EST Margarito VERNON LAB BLOOD ORDERABLES Fin al Result [facility] [address] [place] [address], [place] [phone] * Diabetes Foot Exam (03/07/2024) [facility] Diabetes: Annual Foot Exam Abstracted [facility] Provider HEALTH MAINTENANCE Final Result * Colonoscopy (01/12/2024) [facility] Colonoscopy Abstracted, No interpretation Anatomical Region Laterality Modality Other [facility] Provider HEALTH MAINTENANCE Final Result * Cervical Cancer Screening: HPV (11/15/2023) [facility] Cervical Cancer Screening: HPV Abstracted ,Negative [facility] Provider HEALTH MAINTENANCE Final Result * HIV Screening (10/08/2006) [facility] HIV Screening Abstracted [facility] Provider HEALTH MAINTENANCE Final Result from Last 3 Months or Most Recently Relevant to Health Maintenance Insurance [facility] Care Teams [employer]at[employer] Installer Relationship Specialty Start Date End Date Christiano Saeed MD [address] [place] [id number] PCP - General Internal Medicine 04/12/25
== END 2025-06-25 15:49 | disposition home or self-care (01) ==
LOC: HO.HGS 15:17
PROVIDERS: PCP Internal Medicine; Visit Provider Surgery
DX: L98.9 Disorder of the skin and subcutaneous tissue, unspecified (principal)
CPT/HCPCS: 11440; 99203

== ENCOUNTER 2025-06-25 15:17 | Outpatient (REF) | payer OTHER, SELFPAY | END 2025-06-25 15:18 | disposition home or self-care (01) | LOC: HO.LNP 15:17 | PROVIDERS: PCP Internal Medicine; Visit Provider Surgery | DX: L98.9 Disorder of the skin and subcutaneous tissue, unspecified (principal) | CPT/HCPCS: 11440; 88305; 88341; 88342 ==